=== PATIENT | male | born 1960 ===

== ENCOUNTER → 2017-02-23 | Outpatient (CLI) | payer BC ==
[2017-02-23 14:25] LABS: ALT/SGPT 76 U/L (12-78); AST/SGOT 35 U/L (15-37); BLOOD UREA NITROGEN 20 mg/dl (7-18); BUN/CREATININE RATIO 14.6 (10-20); CALCIUM 8.6 mg/dl (8.5-10.1); CARBON DIOXIDE 30 mmol/L (21-32); CHLORIDE 104 mmol/L (98-107); ESTIMATED AVERAGE GLUCOSE 217 mg/dl; GLUCOSE 95 mg/dl (70-99); HA1C FLAG Normal (Normal); POTASSIUM 4.1 mmol/L (3.5-5.1); SODIUM 137 mmol/L (136-145)
[2017-02-23 14:32] LABS: ALKALINE PHOSPHATASE 66 U/L (45-117); CHOLESTEROL 174 mg/dl (0-200); HDL CHOLESTEROL 25 mg/dl; LDL CHOLESTEROL CALCULATED 71 mg/dl; PROSTATE SPECIFIC ANTIGEN 0.441 ng/ml (0.000-4.000); TRIGLYCERIDES 389 mg/dl (0-150); VERY LOW DENSITY LIPOPROT CALC 78 mg/dl
[2017-02-23 14:37] LABS: RATIO 1221.4 mcg/mg (0-30.0)
--- NOTE | 2017-03-03 11:53 | CODING QUERY MEDICAL NECESSITY ---
CQSUPPORTING DIAGNOSIS NEEDED A supporting diagnosis is required for the test/procedure performed on this patient in order for us to be reimbursed by the patient's insurance. Please provide a supporting diagnosis for the following test/procedure listed below next to the test name along with your signature. *If there is no additional diagnosis for this patient that would support the following test/procedure please document that below next to the test/procedure. Test(s)/Procedure(s) that require a supporting diagnosis: DOS 02/23/17 PROSTATE SPECIFIC (PS) TEST Provider Signature: Date: Thank you Annette Berry Health Information Management Once completed, please kindly fax back to [phone] For questions please call [phone]
== END | disposition home or self-care (01) ==
LOC: C.LABMFLN 07:43
PROVIDERS: ATTEND Family Medicine
DX: I10 Essential (primary) hypertension (principal); E11.40 Type 2 diabetes mellitus with diabetic neuropathy, unspecified; E11.65 Type 2 diabetes mellitus with hyperglycemia

== ENCOUNTER → 2017-06-08 | Outpatient (CLI) | payer BC ==
[2017-06-08 12:04] LABS: ESTIMATED AVERAGE GLUCOSE 203 mg/dl; HA1C FLAG Normal (Normal)
[2017-06-08 12:27] LABS: ALKALINE PHOSPHATASE 64 U/L (45-117); ALT/SGPT 57 U/L (12-78); AST/SGOT 24 U/L (15-37); BLOOD UREA NITROGEN 23 mg/dl (7-18); BUN/CREATININE RATIO 15.6 (10-20); CALCIUM 8.7 mg/dl (8.5-10.1); CARBON DIOXIDE 30 mmol/L (21-32); CHLORIDE 103 mmol/L (98-107); CREATININE 1.49 mg/dl (0.60-1.40); GLUCOSE 113 mg/dl (70-99); HDL CHOLESTEROL 27 mg/dl; POTASSIUM 4.4 mmol/L (3.5-5.1); SODIUM 138 mmol/L (136-145); TRIGLYCERIDES 429 mg/dl (0-150)
[2017-06-08 12:28] LABS: CHOLESTEROL 172 mg/dl (0-200); CHOLESTEROL/HDL RATIO 6.4
[2017-06-08 13:31] LABS: RATIO 1993.1 mcg/mg (0-30.0)
== END | disposition home or self-care (01) ==
LOC: C.LABMFLN 10:08
PROVIDERS: ATTEND Family Medicine
DX: E78.2 Mixed hyperlipidemia (principal); E11.40 Type 2 diabetes mellitus with diabetic neuropathy, unspecified

== ENCOUNTER 2020-03-13 07:57 | Observation (INO) ==
[2020-03-13] MEDS ORDERED: ASPIRIN 81 MG CHEW ONE (09:14)
--- NOTE | 2020-03-13 09:25 | History & Physical Bridge Note ---
Date of Service March 13, 2020 History & Physical Bridge Note I have examined the patient, reviewed the History & Physical and in the interval since the performance of the History & Physical I have noted the following changes of clinical significance: no changes noted
--- NOTE | 2020-03-13 09:55 | XRay Report ---
XR chest 1V portable CLINICAL HISTORY: Chest pain. Heart catheterization. COMPARISON STUDY: No previous studies for comparison. FINDINGS: The heart is mildly enlarged. There is no failure. There is no focal pulmonary consolidatio n. There are no pleural effusions.[ IMPRESSION: Mild cardiomegaly. No active disease in the chest. ACT 112: Negative or not required by law. Electronically signed by: Yvan Costello M.D. 03/13/2020 9:54 AM
[2020-03-13] MEDS ORDERED: NiCARDipine HCL INJ 2.5 MG/ML 10 ML AMP ONE (13:05)
[2020-03-13] MEDS ORDERED: fentaNYL citrate 100 MCG/2 ML VIAL ONE (13:05)
[2020-03-13] MEDS ORDERED: HEPARIN (PORCINE) 1000 UNIT/ML 10 ML (CATH LAB USE ONLY) ONE (13:05)
[2020-03-13] MEDS ORDERED: NITROGLYCERIN/D5W 100MCG/ML 20ML SYR ONE (13:06)
[2020-03-13] MEDS ORDERED: MIDAZOLAM HCL 1 MG/ML 2ML VIAL ONE ×2 (13:06→14:16)
--- NOTE | 2020-03-13 13:22 | Pre Anesthesia Assessment ---
Date of Service March 13, 2020 Pre Sedation Assessment Vital Signs Temp Pulse Resp BP Pulse Ox 03/13/20 08:10 36.7 C 72 18 164/90 H 96 Cardiovascular + regular rate Respiratory normal respiratory effort, lungs clear to auscultation Pre-Sedation Airway Assessment Smoking Status: Never smoker Hx Sleep Apnea: No Short, Thick Neck: No Thyromental Distance: > or= 3.5 Finger Breadths Oral Cavity: + WNL Mallampati Class: IV ASA: ASA3 NPO Status Date of Last Intake of Fluids: 03/12/20 Time of Last Intake of Fluids: 22:00 Date of Last Intake of Solid Food: 03/12/20 Time of Last Intake of Solid Foods: 22:00 Procedure Planning Contraindications for Sedation: none Current Medications Reviewed: Yes Notes The planned sedation has been discussed with the patient. Informed Consent was obtained. I have identified the patient, determined the appropriateness of sedation and have assessed the patient immediately prior to the procedure. All medicine(s) and interventions are by my order.
[2020-03-13] MEDS ORDERED: HydrALAZINE HCL 20 MG/ML VIAL ONE (13:30)
--- NOTE | 2020-03-13 14:13 | Cardiac Catheterization ---
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 Cardiac Status Clinical evaluation leading to the procedure CAD Presenation: Unstable angina Anginal Classification: CCS III Heart Failure: No Cardiogenic Shock within 24 Hours: No Cardiac Arrest within 24 Hours: No Imaging Studies Past 6 Months: Yes Stress Studies Past 6 Months: Yes Standard Exercise Test: Yes - Indeterminant Stress Echocardiogram: Yes - Indeterminant Stress Testing w/SPECT MPI: No Cardiac CTA: No Coronary Anatomy Dominant: Right Left Ventricular Angiography EF (%): n/a Diagnostic Physicians Name: Rafael Vernon MD Status: Elective Closure Device Percutaneous Entry Location: Radial Closure Device: Radial Band Recommendations: PCI without planned CABG Cardiac Cath Procedure Full Procedure Date March 13, 2020 Pre-Procedure Diagnosis Pre-Procedure Diagnosis: Angina (Worsening exertional angina.) AUC Score AUC Score: 7 Post-Procedure Diagnosis Post-Procedure Diagnosis: Severe CAD and Normal Intracardiac Pressures Procedure(s) Performed Procedure(s) Performed: Coronary Angiography and Left Heart Cath Generating Plant Superintendent Rafael Vernon MD Sales Center Associate(s) T Kati Estimated Blood Loss Estimated Blood Loss: < 20 ml Medication(s) Medication(s): Fentanyl, Heparin, Hydralazine, Lidocaine 1%, Nicardipine and Versed Summary of Findings Procedures: 1. Coronary angiography 2. Left heart catheterization 3. Moderate sedation Coronary angiography: 1. Left main coronary artery: LMCA is large in caliber. No significant CAD. 2. Left anterior descending: Large-caliber vessel that extends to the apex. Proximal LAD 20%. At the bifurcation of a medium caliber D2, mid LAD 40%. Small D1. CHRISTINA-3 flow. 3. Circumflex: The circumflex is a large-caliber vessel. No significant CAD within the circumflex. Proximal OM1 70 to 80%. 3. Right coronary artery: RCA is large and dominant. No significant CAD within the RCA, PDA, PL 1, PL 2 branches. Left heart catheterization: 1. Left ventriculography was not performed. 2. LVEDP 10 mmHg. 3. No significant aortic stenosis. Peak to peak gradient across the aortic valve was 0 mmHg. Moderate sedation: 1. Sedation start time: 1:32 PM 2. Sedation end time: 2:13 PM Impression: 1. Severe CAD involving OM1. 2. Nonobstructive CAD involving the proximal and mid LAD. 3. Normal left-sided filling pressure. 4. No aortic stenosis. Plan: 1. Dr. Carlisle of interventional cardiology was asked to review images. He plans to perform PCI of OM1. 2. Risk factor modification. Hemodynamics Rest Ao:: 132/64 Final Ao: 130/68 LV: 133/4/10 Recommendations Recommendations: PCI without planned CABG Specimens Specimens: None Radiation Exposure (mGy) 859 mGy. Fluoro time 3.1 min. Contrast (mls) 45 ml Procedural Complication(s) None Disposition remains in label fuser tender for PCI I attest to the content of the Intraoperative Record and any orders documented therein. Any exceptions are noted below. [facility] Card Cath Procedure Codes Cardiac Catheterization Procedure 1: Cardiovascular Cath Procedures: 48976 Coronaries and LHC (+/-LV) Moderate Sedation Procedure 1: Sedation/Anesthesia: 76753 Mod Sedation by the same physician;Init15 Min Child Age 5 & Up Procedure 2: Sedation/Anesthesia: 43641 Mod Sedation by the same physician; Ea [id number] Minutes PG Care Time/CCT Total # of Minutes Spent Total Time Spent with Patient: Total time spent is greater than 50% in coordination of care (as documented) at patient's floor/unit and/or counseling patient:
--- NOTE | 2020-03-13 14:36 | Post Anesthesia Assessment ---
Date of Service March 13, 2020 Post Sedation Assessment Vital Signs Temp Pulse Resp BP Pulse Ox 03/13/20 08:10 98.1 F 72 18 164/90 H 96 Recovery Score Activity: Moves 4 extremities Respiration: Deep Breath/Cough Circulation: +/-20% PreAnes Value Consciousness: Fully Awake Oxygen Saturation: O2 needed for >90% Discharge Sedation Level of Care: Fast Track Phase II Post Sedation Plan On clinical assessment, the patient appears to have tolerated the sedation without complications. Patient is recovering as anticipated. Patient will continue to be monitored by nursing and may be discharged when sedation discharge criteria are met per below protocol. Upon Completions of procedure up to 15 minutes continue every 5 minute vital signs and the P.A.R. score; then discharge to a Phase I or Fast Track to Phase II per the following guidelines: * Discharge Patient to appropriate Phase II area if PAR is 8 or greater or return to pre- procedure baseline. The post - procedure orders will be as directed. * If PAR score is less than 8 or not return to pre-procedure baseline then patient will follow Phase I monitoring till PAR is reached for Phase II. The Phase I may be done in procedure room or may call to secure a Phase I area. * If naloxone or flumazenil are used for reversal, hold in Phase I for continued monitoring from when last reversal dose was given for a minimum of 60 minutes or longer pending the nurse and/or physician discretion of patient condition before discharge to Phase II. Please call the Sedation Physician to re-evaluate and complete post-note for discharge to Phase II area. Do NOT discharge from procedure sedation or Phase 1 until post- sedation evaluation note is complete by procedure /sedation MD Sedation Discharge Instructions to be given to the patient at discharge to home.
[2020-03-13] MEDS ORDERED: ONDANSETRON INJ 2 MG/ML 2 ML VIAL IV PRN (14:41)
--- NOTE | 2020-03-13 14:41 | Cardiac Catheterization ---
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 Cardiac Status Clinical evaluation leading to the procedure CAD Presenation: Unstable angina Anginal Classification: CCS III Heart Failure: No Cardiogenic Shock within 24 Hours: No Cardiac Arrest within 24 Hours: No Imaging Studies Past 6 Months: Yes Stress Studies Past 6 Months: No Diagnostic Physicians Name: Cedric Carlisle MD Status: Elective Closure Device Percutaneous Entry Location: Radial Closure Device: Radial Band Recommendations: PCI without planned CABG PCI Indication: Unstable Angina Lesion Segment Name: Proximal OM1 Culprit Artery: Yes Stenosis Prior to Rx (%): 80 Chronic Total Occlusion: No IVUS: No FFR: No Pre-Procedure CHRISTINA Flow: 3 Previously Treated Lesion: No Lesion Complexity: Non-High/Non-C Thrombus Present: No Bifurcation Lesion: Yes Guidewire Across Lesion: Stenosis Post-Procedure (%): 0 Post-Procedure CHRISTINA Flow: 3 Devices(s) Deployed: Yes Yes Intraprocedure Events Significant Disection: No Perforation: No Cardiac Cath Procedure Full Procedure Date March 13, 2020 Pre-Procedure Diagnosis Pre-Procedure Diagnosis: Angina (Worsening exertional angina.) AUC Score AUC Score: 7 Post-Procedure Diagnosis Post-Procedure Diagnosis: Severe CAD and Successful PCI Procedure(s) Performed Procedure(s) Performed: Coronary Angiography and Drug Eluting Stent Central Office Worker Cedric Carlisle MD Crop Puller(s) Harika Parikh Estimated Blood Loss Estimated Blood Loss: < 20 ml Medication(s) Medication(s): Clopidogrel, Fentanyl, Heparin, Hydralazine, Nicardipine, Nitroglycerin and Versed Summary of Findings Indication: Accelerating angina Access: 6 Fr right radial artery Catheters: EBU 3.5 guide Findings: For full details of patient's coronary angiography please see cath report dictated by Dr. Vernon. Briefly, patient found to have severe single vessel disease involving proximal OM1. Decision to proceed with PCI. -- PCI -- Antithrombotic therapy: Heparin, clopidogrel Procedure: Left main cannulated with EBU 3.5 guide BMW wire passed across lesion into distal vessel Proximal OM1 lesion predilated with 2.0 compliant balloon Dilated lesion stented with 2.25 x 18 mm Xience Mily drug-eluting Stent post-dilated with 2.5 noncompliant balloon IC vasodilators administered for spasm Post procedure CHRISTINA 3 flow, stent well expanded with minimal residual stenosis and no apparent cardiac complications. Arterial Closure: TR band Summary: 1. Successful PCI of proximal OM1 with single drug-eluting stent (2.25 x 18 mm Xience; postdilated with 2.5 NC) Recommendations: To PCU for continued monitoring Loaded with clopidogrel 600 mg in Plug Overwrap Machine Tender Continue dual-antiplatelet therapy for at least 6 months Continue statin, and ASCVD risk factor modification Consult cardiac Rehab Hemodynamics Rest Ao:: 148/76/107 Final Ao: 149/76/116 LV: -- Recommendations Recommendations: PCI without planned CABG Specimens Specimens: None Radiation Exposure (mGy) 2140 Contrast (mls) 105 Fluids (cc crystalloids) Fluids (cc crystalloids): 187 Drains Drains: None Anesthesia Moderate Procedural Complication(s) None Disposition remains in cath lab technologist for PCI I attest to the content of the Intraoperative Record and any orders documented therein. Any exceptions are noted below. [facility] Card Cath Procedure Codes Moderate Sedation Procedure 1: Sedation/Anesthesia: 61905 Mod Sedation by the same physician; Ea [id number] Minutes Stenting Procedure 1: Cardiovascular Stent Procedures: 38141 Perc transcatheter placement of intracoronary stent(s), with ang PG Care Time/CCT Total # of Minutes Spent Total Time Spent with Patient: Total time spent is greater than 50% in coordination of care (as documented) at patient's floor/unit and/or counseling patient:
[2020-03-13] MEDS ORDERED: CLOPIDOGREL BISULFATE 300 MG TAB ONE (14:43)
[2020-03-13] MEDS ORDERED: NITROGLYCERIN SL 0.4 MG/TAB TAB SL PRN (14:44)
[2020-03-13] MEDS ORDERED: SODIUM CHLORIDE 0.9% 1000ML 1,000 ML IV SCH (14:45)
[2020-03-13] MEDS ORDERED: CARBOHYDRATES FOR HYPOGLYCEMIA PO PRN (14:46)
[2020-03-13] MEDS ORDERED: GLUCOSE 10 TABS/TUBE PO PRN (14:46)
[2020-03-13] MEDS ORDERED: GLUCOSE 40% GEL 15 GM TUBE PO PRN (14:46)
[2020-03-13] MEDS ORDERED: DEXTROSE 50% 50 ML SYRINGE IV PRN (14:46)
[2020-03-13] MEDS ORDERED: GLUCAGON FOR INJ 1 MG VIAL SQ PRN (14:46)
[2020-03-13] MEDS ORDERED: PHARMACY GLYCEMIC MGMT CONSULT PRN (15:34)
[2020-03-13] MEDS: INSULIN ASPART 100 UNITS/ML 3 ML PEN SC SCH ×2 (17:12→20:11)
[2020-03-13] MEDS: METOPROLOL TARTRATE 100 MG TAB PO SCH (20:13)
[2020-03-13] MEDS ORDERED: INSULIN GLARGINE 100 UNIT/ML VIAL SC ONE ×2 (21:00)
[2020-03-14] MEDS ORDERED: INSULIN ASPART 100 UNITS/ML 3 ML PEN SC ONE (02:00)
--- NOTE | 2020-03-14 05:41 | Electrocardiogram Report ---
Test Reason : Blood Pressure : / mmHG Vent. Rate : 069 BPM Atrial Rate : 069 BPM P-R Int : 162 ms QRS Dur : 110 ms QT Int : 414 ms P-R-T Axes : 067 -38 013 degrees QTc Int : 443 ms Normal sinus rhythm Left axis deviation Abnormal ECG No previous ECGs available Confirmed by Rafael Vernon ([id number]) on 03/14/2020 5:41:11 AM Referred By: Rafael Vernon Confirmed By:Rafael Vernon
[2020-03-14 06:42] LABS: Basophils # (auto) 0.02 K/uL (0-0.2); Basophils % (auto) 0.3 %; Eosinophils # (auto) 0.13 K/uL (0-0.5); Eosinophils % (auto) 2.1 %; Hematocrit (blood only) 39.3 % (42-52); Hemoglobin 12.6 g/dL (14.0-18.0); Immature Granulocytes # (auto) 0.03 K/uL (0.00-0.02); Immature Granulocytes % (auto) 0.5 %; Mean Corpuscular Hemoglobin 28.6 pg (25-34); Mean Corpuscular Hgb Conc 32.1 g/dL (32-36); Mean Corpuscular Volume 89.1 fL (80-100); Monocytes # (auto) 0.69 K/uL (0.11-0.59); Monocytes % (auto) 11.1 %; Neutrophils # (auto) 3.87 K/uL (1.4-6.5); Platelet Count 206 K/uL (130-400); RDW Coefficient of Variation 12.8 % (11.5-14.5); RDW Standard Deviation 41.3 fL (36.4-46.3); Red Blood Count 4.41 M/uL (4.7-6.1); White Blood Count 6.24 K/uL (4.8-10.8)
[2020-03-14 07:20] LABS: BUN Creatinine Ratio 11.1 (10-20); Creatinine Clr Calc Pharmacy 58.9 ml/min; Est GFR (African American) 39.3; Est GFR (Non-African American) 33.9; Potassium 4.4 mmol/L (3.5-5.1)
[2020-03-14] MEDS: INSULIN ASPART 100 UNITS/ML 3 ML PEN SC SCH (08:01)
[2020-03-14] MEDS: METOPROLOL TARTRATE 100 MG TAB PO SCH (08:01)
--- NOTE | 2020-03-14 08:25 | Discharge Summary ---
Date of Service March 14, 2020 Admission HPI Per Admitting Provider Mr. Pinon is a pleasant 59-year-old gentleman with a history significant for CAD s/p OM1 PCI with 2.25 mm JOSE GUADALUPE, poorly controlled type 2 diabetes, diabetic nephropathy, CKD, hypertension, and dyslipidemia. He underwent elective outpatient cardiac catheterization on 03/13/2020 for unstable angina. He was found to have severe CAD involving proximal OM1 and underwent PCI with drug- eluting stent. He tolerated the procedure well and was admitted overnight for observation. Principal Diagnosis 1. CAD s/p OM1 PCI 2. Unstable angina Discharge Exam Gen.: No acute distress. Alert and oriented. HEENT: Anicteric sclera. Neck: No JVD. Thick neck. Cardiac: Regular. Normal S1-S2. No murmurs, rubs, or gallops. Pulmonary: Clear to auscultation bilaterally without wheezes, rales, or rhonchi. Abdomen: Soft, nontender, nondistended, with normoactive bowel sounds. No bruits noted. Extremities: No edema or cyanosis. Right radial catheterization site is clean, dry, and intact without erythema or discharge. No hematoma. 2+ right radial pulse. Psychiatric: Affect appears appropriate. Discharge Data Allergies Allergy/AdvReac Type Severity Reaction Status Date / Time ibuprofen [From Advil] Allergy Verified 03/11/20 14:52 lisinopril Allergy Verified 03/11/20 14:52 Consultations 03/13/20 14:44 Consult Cardiac Rehabilitation Routine Procedures Performed Operation Date: 03/13/20 12:30 Actual Procedures p Cath, Left with Cors and Vent - Rafael Vernon MD s Cineradiography w/Routine Exam - Delroy Carlisle MD s Drug Eluting Stent SGl Vessel - Delroy Carlisle MD Cardiac cath 03/13/20: Coronary angiography: 1. Left main coronary artery: LMCA is large in caliber. No significant CAD. 2. Left anterior descending: Large-caliber vessel that extends to the apex. Proximal LAD 20%. At the bifurcation of a medium caliber D2, mid LAD 40%. Sm all D1. CHRISTINA-3 flow. 3. Circumflex: The circumflex is a large-caliber vessel. No significant CAD within the circumflex. Proximal OM1 70 to 80%. 3. Right coronary artery: RCA is large and dominant. No significant CAD within the RCA, PDA, PL 1, PL 2 branches. Left heart catheterization: 1. Left ventriculography was not performed. 2. LVEDP 10 mmHg. 3. No significant aortic stenosis. Peak to peak gradient across the aortic valve was 0 mmHg. PCI 03/13/20: 1. Successful PCI of proximal OM1 with single drug-eluting stent (2.25 x 18 mm Xience; postdilated with 2.5 NC) Telemetry personally reviewed: Sinus rhythm. No arrhythmia. Ordered Studies 03/13/20 08:49 CL Cath Imgs for PACS use only Routine Hospital Course (1) CAD (coronary artery disease): (2) S/P coronary artery stent placement: (3) Resistant hypertension: (4) Hyperlipidemia associated with type 2 diabetes mellitus: He did well during observation. He denied any further angina. He denied shortness of breath, syncope, near-syncope, palpitations, or bleeding such as melena, hematochezia, hematuria. No complication from his right radial catheterization site. He ambulated in the hallway today during our visit. He was able to continue with conversation while walking without shortness of breath or chest pain. He states that he was able to walk today in the hospital further than he was able to walk at home prior to PCI. Overall, he feels much better. ASSESSMENT/PLAN: 1. CAD s/p OM1 PCI: No further angina. Continue aspirin 81 mg daily indefinitely. Continue Plavix 75 mg daily for at least 6 months, but preferably 1 year or longer. High-intensity statin therapy. Continue beta-evangelista. Continue blood pressure control. 911 for angina that does not resolve within 5 minutes nitroglycerin. 2. Hypertension: Blood pressure has been mostly normotensive to mildly hypertensive. Metoprolol was recently increased earlier this week. Continue current regimen and titrate medications as appropriate as an outpatient. 3. Dyslipidemia: He apparently had some form of myalgias in the past On some statin. Given his CAD, recommend high-intensity statin therapy. He was agreeable. If he has significant symptoms, he was asked to notify the office for further adjustments. 4. CKD: His creatinine today is improved from earlier this week and at his usual baseline. 5. Disposition: Follow-up in the next 1-2 weeks in Cardiology outpatient office. He will be contacted by the cardiology office with the time and date of this appointment. He should call sooner for any other questions or concerns. He is stable for discharge. Total Time Total Time Spent Total Time Spent (In Minutes): 30 Total Time Includes: Examination of the Patient, Discharge Planning and Medication Reconciliation Discharge Plan Discharge Items Patient Disposition: Home - Self-Care Reason For Visit: Dyspnea on Exertion Discharge Diagnosis: Coronary artery disease and stent placement within the OM1 vessel. Activity: Per Instructions section Non-emergency contact: Associate Professor Of Library Media Call non-emergency contact if: you have any medication questions, your symptoms worsen, you have a fever, your wound has increased redness, your wound has increased drainage and your wound pain has increased Follow-up/Referrals: Daniel Croft MD [Primary Care Provider] - Diet: Carb Consistent or DM2 and Heart Healthy Addtl Attending Provider Instructions: ACTIVITY RECOMMENDATIONS: Excess manipulation of the wrist should be avoided for the next 24-48 hours. * No lifting over 2 pounds (approximately a 1/2 gallon of milk) with the utilized arm for 24 hours. * No strenuous activity such as bowling or tennis for 3 days. * Keep the site of the procedure covered with a bandage for 24 hours. *You may shower the day after the procedure. Do not take a tub bath or submerge the puncture site in water for the next 3 days. *Do not operate any motorized equipment for 3 days. SPECIAL CARE INSTRUCTIONS: The site may be slightly bruised and sore following your procedure. Should any of the following occur, contact the Dr. who performed your procedure. 1. Redness/inflammation, swelling, chills, or fever, or colored drainage at procedure site within 3-7 days after your procedure. 2. Coldness, discoloration, ongoing numbness, severe pain, or swelling. Expect mild tingling of hand and tenderness at the puncture site for up to three days. If this persists beyond three days, or other symptoms develop, notify the Dr. who performed your procedure. BLEEDING: If the procedure site on your wrist begins to bleed, do not panic 1. Place 1 or 2 fingers firmly just slightly above the insertion site to stop the bleeding. You may be able to feel your pulse as you hold pressure. 2. Lift your finger after 5 minutes to see if the bleeding has stopped. 3. Once the bleeding has stopped, gently wipe the wrist area clean with a bandage. * If the bleeding from your wrist does not stop after 10 minutes, or if there is a large amount of bleeding or spurting, call 911 (do not drive yourself to the hospital). SKIN IRRITATION: * You may experience some redness and/or swelling in the area where radiation was administered. If any skin irritation occurs, please contact your family physician. FOLLOW UP VISIT: Keep any scheduled doctor appointments. Pending Studies at Discharge: No Stand-Alone Forms: My [facility], Smoking Cessation Medications and DC Order Prescriptions: New atorvastatin 40 mg Tablet 40 mg PO DAILY 30 Days Qty: 30 RF: 5 clopidogrel 75 mg Tablet 75 mg PO QAM Qty: 90 RF: 3 Continued (DME) OneTouch Verio test strips strip See Dose Instructions .ROUTE .MEDSUPPLY Qty: 400 RF: 3 furosemide 40 mg tablet 40 mg PO BID Qty: 180 RF: 3 (DME) pen needle, diabetic [BD Ultra-Fine Darcy Pen Needle] 32 gauge x 5/32" needle See Dose Instructions .ROUTE .MEDSUPPLY Qty: 400 RF: 3 losartan 100 mg tablet 100 mg PO DAILY Qty: 90 RF: 3 aspirin 81 mg tablet,delayed release (DR/EC) 81 mg PO DAILY Qty: 90 RF: 3 glucagon HCl 1 mg recon soln 1 mg IM ONCE PRN (Reason: hypoglycemia) Qty: 1 RF: 3 (DME) lancets [OneTouch Delica Lancets] 33 gauge misc See Dose Instructions .ROUTE .MEDSUPPLY Qty: 400 RF: 3 semaglutide 1 mg/dose (2 mg/1.5 mL) pen injector 1 mg SQ WEEKLY Qty: 3 RF: 5 metoprolol tartrate 100 mg tablet 100 mg PO BID Qty: 180 RF: 3 nitroglycerin 0.4 mg tablet, sublingual 0.4 mg sublingual Q5M PRN (Reason: chest pain) Qty: 25 RF: 4 cholecalciferol (vitamin D3) 25 mcg (1,000 unit) tablet 2,000 units PO DAILY Qty: 90 RF: 3 insulin lispro [Humalog KwikPen Insulin] 100 unit/mL insulin pen See Rx Instructions SQ BID Qty: 15 RF: 2 Toujeo Max U-300 SoloStar 300 unit/mL (3 mL) insulin pen 72 units SQ BID RF: 0 Discontinued atorvastatin 10 mg tablet 10 mg PO DAILY Qty: 90 RF: 3 Discharge Orders: Discharge Order (Routine); Ordered 03/14/20 Ordered By: Rafael Vernon Admission Data Admit Date/Time: 03/13/20 14:28 Attending Provider: Rafael Vernon Admit Provider: Rafael Vernon Primary Care Provider: Daniel Croft Coding Level of Care Code 80740 OBS Care - Discharge Diagnoses CAD (coronary artery disease) I25.10 S/P coronary artery stent placement Z95.5 Resistant hypertension I10 Hyperlipidemia associated with type 2 diabetes mellitus E11.69; E78.5
[2020-03-14] MEDS ORDERED: ATORVASTATIN 40 MG TAB PO SCH (09:00)
[2020-03-14] MEDS ORDERED: CLOPIDOGREL BISULFATE 75 MG TAB PO SCH (09:00)
[2020-03-14] MEDS ORDERED: INSULIN GLARGINE 100 UNIT/ML VIAL SC SCH ×2 (09:00)
[2020-03-14] MEDS ORDERED: ASPIRIN 81 MG ECTAB PO SCH (09:00)
[2020-03-14] MEDS ORDERED: LOSARTAN POTASSIUM 50 MG TAB PO SCH (09:00)
[2020-03-14] MEDS ORDERED: CHOLECALCIFEROL 1,000 UNITS 25 MCG TAB PO SCH (09:00)
--- NOTE | 2020-03-14 09:00 | Pharmacy Report ---
Glycemic Control Consultation - Date of Service March 14, 2020 - Scope Scope: Glycemic Pharmacist consulted for glycemic control and to write orders per [facility] inpatient glycemic control protocol. - Objective Weight: 147 kg Acccher[place]cks BSG (last 24hrs): 03/13/20 03/13/20 03/14/20 16:41 20:09 02:32 Glucose POC Glucose 125 H 138 H 107 H 03/14/20 03/14/20 06:22 07:28 Glucose 108 H POC Glucose 103 H Laboratory Data (last 24hrs): 03/14/20 06:22 Potassium 4.4 Carbon Dioxide 26 Anion Gap 6.0 Creatinine 2.09 H Est Cr Clr Drug Dosing 58.9 - Recent Pertinent Medications Outpatient Anti-diabetic Regimen: * Toujeo 72 units SQ BID + Humalog 20 units SQ w/ meals and 10 units w/ snacks + Ozempic 1 mg SQ weekly * A1c = 11.6% (02/27/20) The patient is currently receiving: * Basal insulin: Lantus 58 units x 1 * Correctional Insulin: Novolog Correction per scale ACHS Goal Range: Low 110 mg/dL - High 140 mg/dL Correction Factor: 5 mg/dL/unit * Prandial insulin: Per carb ratio of 1 unit per 2 grams CHO consumed Risk Factors for Insulin Resistance: * Diet: * Heart Healthy/T2DM - Assessment & Plan Assessment & Plan: ASSESSMENT: * 59 yo M admitted for observation s/p cardiac catheterization * BSGs well controlled yesterday post-operatively: 125-138 mg/dL * Received 58 units of Lantus last evening (20% reduction from home dose) * Started on Novolog based on estimated basal needs of 144 units daily * Fasting BSG was 103 this AM - well controlled * No changes to insulin regimen at this time PLAN FOR INPATIENT GLYCEMIC CONTROL: * Basal insulin * Lantus 58 units SQ BID * Bolus insulin * NovoLog per scale ACHS or Q6hrs while NPO * Goal Range: Low 110 mg/dL - High 140 mg/dL * Correction Factor: 5 mg/dL/unit * Nutritional / Prandial insulin per carb ratio of 1 unit per 2 grams CHO consumed * Please note that the plan above was derived based on current level of insulin resistance and hospital stress. These recommendations are appropriate for inpatient admission only. Plan of care upon discharge will need to be reassessed to avoid potential outpatient hypo/hyperglycemia. Thank you.
== END 2020-03-14 09:47 | disposition home or self-care (01) ==
LOC: CC 07:57 → 2S 07:57